=== PATIENT | female | born 1990 | race Caucasian/White ===

== ENCOUNTER 2019-01-23 23:48 | Emergency (ER) | payer SELFPAY ==
[~2019-01-23] VITALS: Wt 66.7 kg
[~2019-01-23 23:48] MED LIST: ALPRAZOLAM0.5 MG PO; AMOXICILLIN500 MG PO; ANAPROX DS550 MG PO; ANTIVERT25 MG PO; B121000 MCG/1 IM; BACTRIM DS 8001 TA1 PO; CEFDINIR300 MG PO; CIPRO500 MG PO; FLAGYL; FLUOXETINE20 MG PO; HYDROCORT CREAM1% T; IBUPROFEN600 MG PO; KEFLEX500 M1 PO; MOTRIN600 MG PO; Motrin,Rufen800 MG PO; PENICILLIN250 MG PO; PREDNICOT20 MG PO; PYRIDIUM200 M1 PO; TESSALON PERLE200 MG PO; THE MEDICINE S400 IU PO; ULTRAM50 MG PO; VITAMIN B11000 MCG/M IM; VITAMIN D400 I1 PO; ZANTAC 150150 MG PO; ZANTAC150 MG PO; ZITHROMAX Z PA250 MG PO; ZOFRAN ODT4 MG SL; ZOFRAN4 MG PO; ZOVIRAX800 MG PO; ZYRTEC10 M3 PO
[2019-01-24 00:30] LABS: BILIRUBIN NEGATIVE (NEGATIVE); BLOOD NEGATIVE (NEGATIVE); CLARITY CLEAR (CLEAR); COLOR YELLOW (YELLOW); GLUCOSE NEGATIVE (NEGATIVE); KETONE NEGATIVE (NEGATIVE); LEUKO ESTERASE NEGATIVE (NEGATIVE); NITRITE NEGATIVE (NEGATIVE); SPECIFIC GRAVITY 1.015 (1.005-1.030); UROBILINOGEN 0.2 E.U./dl (0.2-1.0)
[2019-01-24 00:40] LABS: BACTERIA 1+
[2019-01-24] MEDS ORDERED: SEPTDS PO (00:50)
== END 2019-01-24 01:00 | disposition home or self-care (01) ==
LOC: ED 23:48
PROVIDERS: Student in an Organized Health Care Education/Training Program
DX: N39.0 Urinary tract infection, site not specified (principal); Z79.2 Long term (current) use of antibiotics; Z79.899 Other long term (current) drug therapy

== ENCOUNTER 2019-05-03 02:39 | Emergency (ER) | payer SELFPAY ==
[~2019-05-03] VITALS: Ht 154.9 cm; Wt 65.8 kg
[~2019-05-03 02:39] MED LIST changes: +SEPTDS PO
[2019-05-03 03:01] LABS: BILIRUBIN NEGATIVE (NEGATIVE); BLOOD 3+ (NEGATIVE); CLARITY SL CLOUDY (CLEAR); COLOR YELLOW (YELLOW); GLUCOSE NEGATIVE (NEGATIVE); KETONE NEGATIVE (NEGATIVE); LEUKO ESTERASE NEGATIVE (NEGATIVE); NITRITE NEGATIVE (NEGATIVE); UROBILINOGEN 0.2 E.U./dl (0.2-1.0)
[2019-05-03 03:07] LABS: EPITHELIAL CELLS 45-50
[2019-05-03 03:08] LABS: BACTERIA TRACE; RBC 21-30 rbc/hpf (0-2)
[2019-05-03 03:27] LABS: BASO % 0.3 % (0.0-1.0); EOS # 0.1 10*3/uL (0.0-0.4); EOS % 1.6 % (1.0-4.0); HEMATOCRIT 36.9 % (37.0-47.0); HEMOGLOBIN 11.9 g/dl (12.0-16.0); LYMPH # 1.1 10*3/uL (1.3-4.4); LYMPH % 19.2 % (27.0-41.0); MEAN CELL VOLUME 91.6 fl (81.0-99.0); MEAN CORPUSCULAR HGB 29.5 pg (27.0-31.0); MEAN CORPUSCULAR HGB CONC 32.2 g/dl (33.0-37.0); MEAN PLATELET VOLUME 9.4 fl (9.6-12.3); MONO # 0.6 10*3/uL (0.1-1.0); MONO % 9.7 % (3.0-9.0); NEUT % 68.9 % (47.0-73.0); PLATELET COUNT AUTOMATED 262 10*3/uL (130-400); RED BLOOD COUNT 4.03 10*6/uL (4.10-5.10); RED CELL DISTRI WIDTH 13.2 % (0-14.5); WHITE BLOOD COUNT 5.8 10*3/uL (4.8-10.8)
[2019-05-03 03:42] LABS: ALBUMIN 3.6 gm/dl (3.1-4.5); ALKALINE PHOSPHATASE 60 U/L (45-117); BUN 10 mg/dl (7-24); CHLORIDE 111 mmol/L (98-107); CREATININE 0.69 mg/dL (0.55-1.02); LIPASE 56 U/L (73-393); POTASSIUM 3.5 mmol/L (3.5-5.1); SGOT/AST 9 IU/L (3-35); SGPT/ALT 12 U/L (12-78); SODIUM 142 mmol/L (136-145); TOTAL PROTEIN 7.5 gm/dL (6.4-8.2)
[2019-05-03] MEDS ORDERED: ZOFRAN4 MG PO (04:46)
== END 2019-05-03 05:09 | disposition home or self-care (01) ==
LOC: ED 02:39
PROVIDERS: Emergency Medicine Emergency Medical Services
DX: A08.4 Viral intestinal infection, unspecified (principal); R19.7 Diarrhea, unspecified; K59.00 Constipation, unspecified; Z79.899 Other long term (current) drug therapy; Z98.890 Other specified postprocedural states

== ENCOUNTER 2019-08-06 01:18 | Emergency (ER) | payer SELFPAY ==
[~2019-08-06] VITALS: Ht 154.9 cm; Wt 63.5 kg
[2019-08-06 01:57] LABS: CLARITY CLEAR (CLEAR); COLOR YELLOW (YELLOW); GLUCOSE NEGATIVE (NEGATIVE)
[2019-08-06 01:58] LABS: BILIRUBIN NEGATIVE (NEGATIVE); BLOOD NEGATIVE (NEGATIVE); EPITHELIAL CELLS 45-50; KETONE TRACE (NEGATIVE); LEUKO ESTERASE NEGATIVE (NEGATIVE); NITRITE NEGATIVE (NEGATIVE); SPECIFIC GRAVITY 1.025 (1.005-1.030); UROBILINOGEN 0.2 E.U./dl (0.2-1.0)
[2019-08-06 01:59] LABS: BACTERIA TRACE
== END 2019-08-06 02:27 | disposition home or self-care (01) ==
LOC: ED 01:18
PROVIDERS: Emergency Medicine
DX: O26.891 Other specified pregnancy related conditions, first trimester (principal); O99.331 Smoking (tobacco) complicating pregnancy, first trimester; R35.0 Frequency of micturition; R10.30 Lower abdominal pain, unspecified; Z3A.01 Less than 8 weeks gestation of pregnancy

== ENCOUNTER 2021-04-17 11:42 | Emergency (ER) | payer OTHER ==
[~2021-04-17] VITALS: Ht 154.9 cm; Wt 68.0 kg
== END 2021-04-17 14:39 | disposition left against medical advice (07) ==
LOC: ED 11:42
DX: R00.2 Palpitations (principal); Z53.21 Procedure and treatment not carried out due to patient leaving prior to being seen by health care provider

== ENCOUNTER 2021-11-25 00:10 | Emergency (ER) | payer OTHER ==
[~2021-11-25] VITALS: Ht 154.9 cm; Wt 69.5 kg
[2021-11-25 00:39] LABS: BILIRUBIN Negative (Negative); BLOOD Negative (Negative); CLARITY Clear (Clear); COLOR Yellow (Yellow); GLUCOSE Negative (Negative); KETONE Negative (Negative); LEUKO ESTERASE Negative (Negative); NITRITE Negative (Negative); SPECIFIC GRAVITY 1.015 (1.001-1.030); UROBILINOGEN 0.2 E.U./dl (0.0-1.0)
[2021-11-25 01:01] LABS: BACTERIA 1+; EPITHELIAL CELLS 31-40
[2021-11-25] MEDS ORDERED: PREDNISONE20 M1 PO (02:10)
[2021-11-25] MEDS ORDERED: CYCLOBENZAPRINE10 MG PO (02:10)
== END 2021-11-25 02:14 | disposition home or self-care (01) ==
LOC: ED 00:10
PROVIDERS: Emergency Medicine
DX: M25.551 Pain in right hip (principal); M25.552 Pain in left hip; M54.50 Low back pain, unspecified; F17.200 Nicotine dependence, unspecified, uncomplicated

== ENCOUNTER 2022-06-16 13:51 | Emergency (ER) | payer MEDICAID ==
[~2022-06-16] VITALS: Ht 154.9 cm; Wt 63.5 kg
[~2022-06-16 13:51] MED LIST changes: +CYCLOBENZAPRINE10 MG PO; +PREDNISONE20 M1 PO
== END 2022-06-16 21:11 | disposition left against medical advice (07) ==
LOC: ED 13:51
DX: J02.9 Acute pharyngitis, unspecified (principal); Z20.822 Contact with and (suspected) exposure to COVID-19

== ENCOUNTER 2024-10-27 09:43 | Emergency (ER) | payer MEDICAID ==
[~2024-10-27] VITALS: Ht 154.9 cm; Wt 63.5 kg
== END 2024-10-27 11:30 | disposition home or self-care (01) ==
LOC: ED 09:43
DX: H57.89 Other specified disorders of eye and adnexa (principal); F41.9 Anxiety disorder, unspecified; Z79.899 Other long term (current) drug therapy